=== PATIENT | male | born 1940 | race Caucasian/White ===

== ENCOUNTER 2018-09-14 14:24 | Emergency (ER) | payer OTHER ==
[~2018-09-14] VITALS: Ht 177.8 cm; Wt 78.9 kg
[2018-09-14 15:05] LABS: HEMATOCRIT 47.8 % (42.0-52.0); MCH 30.2 pg (26.0-34.0); MCHC 33.5 g/dL (28.0-37.0); MCV 90.2 fL (80.0-100.0); RBC 5.3 mil/uL (4.50-6.00); RDW 14.1 % (10.5-14.5); WBC 17.3 thou/uL (4.0-11.0)
[2018-09-14 15:20] LABS: CALCIUM 8.8 mg/dL (8.5-10.1); CREATININE 1.1 mg/dL (0.7-1.3); POTASSIUM 4.3 mmol/L (3.5-5.1)
[2018-09-14 15:26] LABS: ALBUMIN 3.7 g/dL (3.4-5.0); TOTAL BILIRUBIN 0.5 mg/dL (<0.1-1.0); TOTAL PROTEIN 7.4 g/dL (6.4-8.2)
[2018-09-14 16:04] LABS: URINE BILIRUBIN NEGATIVE (Negative); URINE BLOOD NEGATIVE (Negative); URINE CLARITY CLEAR; URINE COLOR YELLOW; URINE GLUCOSE-RANDOM* NEGATIVE (Negative); URINE KETONES 1+ (Negative); URINE LEUKOCYTES-REFLEX NEGATIVE (Negative); URINE NITRITE-REFLEX NEGATIVE (Negative); URINE PROTEIN (DIPSTICK) TRACE (Negative); URINE SPECIFIC GRAVITY >= 1.030 (1.005-1.035); URINE UROBILINOGEN 0.2 E.U./dl (0.2-1.0)
[2018-09-14 16:15] VITALS: BP 112/62
== END 2018-09-14 16:40 | disposition home or self-care (01) ==
LOC: ER 14:24
PROVIDERS: Emergency Medicine
DX: D72.829 Elevated white blood cell count, unspecified (principal); F03.90 Unspecified dementia, unspecified severity, without behavioral disturbance, psychotic disturbance, mood disturbance, and anxiety; R33.9 Retention of urine, unspecified; F32.9 Major depressive disorder, single episode, unspecified; G89.29 Other chronic pain; R10.9 Unspecified abdominal pain

== ENCOUNTER 2018-10-21 14:52 | Emergency (ER) | payer OTHER ==
[~2018-10-21] VITALS: Ht 198.1 cm; Wt 99.8 kg
[2018-10-21 17:47] LABS: HEMATOCRIT 45.6 % (42.0-52.0); HEMOGLOBIN 15.1 gm/dL (14.0-18.0); MCHC 33.2 g/dL (28.0-37.0); MCV 90.4 fL (80.0-100.0); RBC 5.04 mil/uL (4.50-6.00); RDW 14.7 % (10.5-14.5); WBC 7.8 thou/uL (4.0-11.0)
[2018-10-21 17:59] LABS: ANION GAP 4 mmol/L (7-16); BUN 19 mg/dL (7-18); CALCIUM 9.3 mg/dL (8.5-10.1); CHLORIDE 103 mmol/L (98-107); CO2 29 mmol/L (21-32); CREATININE 1.1 mg/dL (0.7-1.3); GLUCOSE 99 mg/dL (74-106); POTASSIUM 4.1 mmol/L (3.5-5.1); SODIUM 136 mmol/L (136-145)
[2018-10-21 18:08] LABS: ALBUMIN 3.9 g/dL (3.4-5.0); SGOT 23 U/L (15-37); SGPT 29 U/L (30-65); TOTAL BILIRUBIN 0.3 mg/dL (<0.1-1.0); TOTAL PROTEIN 7.6 g/dL (6.4-8.2); TROPONIN-I <0.06 ng/mL (<0.06)
[2018-10-21 19:33] VITALS: BP 124/69
--- NOTE | 2018-10-22 08:04 | EKG ---
[facility] [place] [address] ELECTROCARDIOGRAM REPORT Name: ARIADNE GARIBAY Room #: DEP [place]#: [id number] Admission: 10/21/18 Attend Phys: Discharge: 10/21/18 Date of : 38 Report #: [id number] THIS REPORT FOR: //name// [facility] ED Test Date: 2018-10-21 Test Time: 17:24:54 Pat Name: ARIADNE GARIBAY Department: Room: Gender: Room Service Server: [facility] : 1940 Requested By: Marielena Garcia Order Number: [id number] MD: Jitendra Aaron Measurements Intervals [place] Rate: 44 P: 26 LA: 244 QRS: -6 QRSD: 83 T: 29 QT: 452 QTc: 387 Interpretive Statements Sinus bradycardia Prolonged LA interval Low voltage, precordial leads Baseline wander in lead(s) V1 No previous ECG available for comparison Electronically Signed On 10-22-2018 8:03:55 [employer] by Jitendra Aaron [email or web address] <ELECTRONICALLY SIGNED> By: Jitendra Aaron MD, [facility] 10/22/18 [id number] 1724 23 Jitendra Aaron MD, FACC /EPI
== END 2018-10-21 19:34 | disposition home or self-care (01) ==
LOC: ER 14:52
PROVIDERS: Physician Assistant
DX: R07.89 Other chest pain (principal); F32.9 Major depressive disorder, single episode, unspecified; G89.29 Other chronic pain; R10.9 Unspecified abdominal pain; Z87.891 Personal history of nicotine dependence